=== PATIENT | female | born 1990 | race American Indian/Alaskan Native ===

== ENCOUNTER 2021-02-08 02:33 | Emergency (ER) | payer SELFPAY ==
--- NOTE | 2021-02-08 06:00 | Emergency Department Report ---
- General Chief Complaint: Upper Respiratory Infection Stated Complaint: COLD SX Source: patient Mode of arrival: Ambulatory Limitations: No Limitations - History of Present Illness Initial Comments: Patient is a 30-year-old -[place] female with no past medical history presents to the ED with complaint of acute onset persistent nasal and sinus congestion, frontal sinus pressure, mild dry cough for the last 7 days. Patient states that all her family members including the children have had similar symptoms of the same time. Patient denies dizziness, syncope, fever, chills, nausea, vomiting, abdominal pain, chest pain, diarrhea, sore throat, neck pain or change in vision. MD Complaint: cough, rhinorrhea, nasal congestion, sinus pain -: Sudden, week(s) (1) Severity: moderate Severity scale (0 -10): 4 Quality: sharp, aching Consistency: constant Improves With: nothing Worsens With: nothing Context: sick contacts Associated Symptoms: denies other symptoms, headache, rhinorrhea, nasal congestion, cough. denies: fever, chills, diaphoresis, sore throat, stiff neck, chest pain, shortness of breath, abdominal pain, nausea Treatments Prior to Arrival: "cold medicine" - Related Data Previous Rx's Medication Instructions Recorded Last Taken Type Amoxicillin [Trimox CAP] 500 mg PO Q8H #30 capsule 02/08/21 Unknown Rx Brompheniramine/Pseudoephed/Dm 5 ml PO Q6H PRN #118 ml 02/08/21 Unknown Rx [Bromfed Dm Cough Syrup] Ibuprofen [Motrin] 800 mg PO Q8HR PRN #20 tablet 02/08/21 Unknown Rx Allergies Allergy/AdvReac Type Severity Reaction Status Date / Time No Known Allergies Allergy Unverified 02/08/21 02:42 ED Review of Systems ROS: Stated complaint: COLD SX Other details as noted in HPI Constitutional: denies: chills, fever Eyes: denies: eye pain, eye discharge, vision change ENT: congestion, other (Frontal and maxillary sinus pressure). denies: ear pain, throat pain Respiratory: cough. denies: shortness of breath, wheezing Cardiovascular: denies: chest pain, palpitations Endocrine: no symptoms reported Gastrointestinal: denies: abdominal pain, nausea, diarrhea Genitourinary: denies: urgency, dysuria, discharge Musculoskeletal: denies: back pain, joint swelling, arthralgia Skin: denies: rash, lesions Neurological: headache. denies: weakness, paresthesias Psychiatric: denies: anxiety, depression Hematological/Lymphatic: denies: easy bleeding, easy bruising ED Past Medical Hx - Past Medical History Previous Medical History?: No - Surgical History Past Surgical History?: No - Social History Smoking Status: Never Smoker Substance Use Type: None - Medications Home Medications: Home Medications Medication Instructions Recorded Confirmed Last Taken Type Amoxicillin [Trimox CAP] 500 mg PO Q8H #30 capsule 02/08/21 Unknown Rx Brompheniramine/Pseudoephed/Dm 5 ml PO Q6H PRN #118 ml 02/08/21 Unknown Rx [Bromfed Dm Cough Syrup] Ibuprofen [Motrin] 800 mg PO Q8HR PRN #20 tablet 02/08/21 Unknown Rx ED Physical Exam - General Limitations: No Limitations General appearance: alert, in no apparent distress - Head Head exam: Present: atraumatic, normocephalic, normal inspection - Eye Eye exam: Present: normal appearance, PERRL, EOMI Pupils: Present: normal accommodation - ENT ENT exam: Present: mucous membranes moist, TM's normal bilaterally, normal external ear exam, other (Grossly congested nasal passages; palpable frontal and maxillary sinus tenderness) - Neck Neck exam: Present: normal inspection, full ROM. Absent: tenderness - Respiratory Respiratory exam: Present: normal lung sounds bilaterally. Absent: respiratory distress, wheezes, rales, rhonchi, chest wall tenderness, accessory muscle use, decreased breath sounds - Cardiovascular Cardiovascular Exam: Present: regular rate, normal rhythm, normal heart sounds. Absent: systolic murmur, diastolic murmur, rubs, gallop - GI/Abdominal GI/Abdominal exam: Present: soft, normal bowel sounds. Absent: tenderness, guarding, rebound, hyperactive bowel sounds - Extremities Exam Extremities exam: Present: normal inspection, full ROM, normal capillary refill - Back Exam Back exam: Present: normal inspection, full ROM. Absent: tenderness, CVA tenderness (R), CVA tenderness (L), muscle spasm, paraspinal tenderness, vertebral tenderness - Neurological Exam Neurological exam: Present: alert, oriented X3, CN II-XII intact, normal gait, reflexes normal - Psychiatric Psychiatric exam: Present: normal affect, normal mood - Skin Skin exam: Present: warm, dry, intact, normal color. Absent: rash ED Course Vital Signs 02/08/21 02:46 Temperature 98.7 F Pulse Rate 79 Respiratory 20 Rate Blood Pressure 121/68 O2 Sat by Pulse 95 Oximetry ED Medical Decision Making - Medical Decision Making This is a 30-year-old -[place] female with no past medical history presents to the ED with complaint of acute onset persistent nasal and sinus congestion, frontal sinus pressure, mild dry cough for the last 7 days. Patient states that all her family members including the children have had similar symptoms of the same time. In the ED, patient is alert and oriented x3 and is not in any distress. Patient is hemodynamically stable. Patient symptoms are likely due to acute upper respiratory infection versus sinusitis versus mild bronchitis. Patient was discharged home on medications and advised to follow-up with her primary physician in 7 to 10 days for reevaluation. Patient advised return to the ED immediately if symptoms get worse. - Differential Diagnosis URI; sinusitis; bronchitis; viral syndrome Critical care attestation.: If time is entered above; I have spent that time in minutes in the direct care of this critically ill patient, excluding procedure time. ED Disposition Clinical Impression: Acute upper respiratory infection Acute frontal sinusitis, unspecified Qualifiers: Recurrence: non-recurrent Qualified Code(s): J01.10 - Acute frontal sinusitis, unspecified Disposition: DC-01 TO HOME OR SELFCARE Is pt being admited?: No Does the pt Need Aspirin: No Condition: Stable Instructions: Sinusitis, Adult, [id number], Upper Respiratory Infection, Adult, [id number] Additional Instructions: Take medication with food, drink plenty of fluids and follow-up with your primary care physician in 5 to 7 days for reevaluation. Return to the ED immediately if symptoms get worse Prescriptions: Brompheniramine/Pseudoephed/Dm [Bromfed Dm Cough Syrup] 5 ml PO Q6H PRN #118 ml PRN Reason: Cough Ibuprofen [Motrin] 800 mg PO Q8HR PRN #20 tablet PRN Reason: Pain , Severe (7-10) Amoxicillin [Trimox CAP] 500 mg PO Q8H #30 capsule Referrals: [facility] [Provider Group] - 3-5 Days Time of Disposition: 06:00 Print Language: MAORI
== END 2021-02-08 07:15 | disposition home or self-care (01) ==
LOC: ED 02:33
CPT/HCPCS: 99282

== ENCOUNTER 2022-03-06 20:18 | Emergency (ER) | payer MEDICAID ==
--- NOTE | 2022-03-07 01:26 | Emergency Department Report ---
ED Animal Bite HPI - General Chief Complaint: Animal Bite Stated Complaint: ANIMAL BITE Time Seen by Provider: 03/07/22 01:25 Source: patient, EMS Mode of arrival: Stretcher Limitations: No Limitations - History of Present Illness Initial Comments: Patient is a 31-year-old female presents to the emergency department with complaint of animal bite. Patient was bitten by a dog. She has bites to the left arm and to the right calf. She is unsure of her tetanus status. The dog has not been vaccinated against rabies but she states that the dog is in custody of animal control. - Related Data Previous Rx's Medication Instructions Recorded Last Taken Type Amoxicillin [Trimox CAP] 500 mg PO Q8H #30 capsule 02/08/21 Unknown Rx Brompheniramine/Pseudoephed/Dm 5 ml PO Q6H PRN #118 ml 02/08/21 Unknown Rx [Bromfed Dm Cough Syrup] Ibuprofen [Motrin] 800 mg PO Q8HR PRN #20 tablet 02/08/21 Unknown Rx Amoxicillin/K Clav Tab [Augmentin 1 tab PO Q12HR 7 Days #14 tab 03/07/22 Unknown Rx 875 mg] HYDROcodone/APAP 5-325 [[place] 1 each PO Q6HR PRN 2 Days #8 tablet 03/07/22 Unknown Rx 5/325] Allergies Allergy/AdvReac Type Severity Reaction Status Date / Time No Known Allergies Allergy Unverified 02/08/21 02:42 ED Review of Systems ROS: Stated complaint: ANIMAL BITE Other details as noted in HPI Constitutional: denies: chills, fever Eyes: denies: eye pain, eye discharge, vision change ENT: denies: ear pain, throat pain Respiratory: denies: cough, shortness of breath, wheezing Cardiovascular: denies: chest pain, palpitations Endocrine: no symptoms reported Gastrointestinal: denies: abdominal pain, nausea, diarrhea Genitourinary: denies: urgency, dysuria, discharge Musculoskeletal: denies: back pain, joint swelling, arthralgia Skin: lesions. denies: rash Neurological: denies: headache, weakness, paresthesias Psychiatric: denies: anxiety, depression Hematological/Lymphatic: denies: easy bleeding, easy bruising ED Past Medical Hx - Social History Smoking Status: Never Smoker Substance Use Type: None - Medications Home Medications: Home Medications Medication Instructions Recorded Confirmed Last Taken Type Amoxicillin [Trimox CAP] 500 mg PO Q8H #30 capsule 02/08/21 Unknown Rx Brompheniramine/Pseudoephed/Dm 5 ml PO Q6H PRN #118 ml 02/08/21 Unknown Rx [Bromfed Dm Cough Syrup] Ibuprofen [Motrin] 800 mg PO Q8HR PRN #20 tablet 02/08/21 Unknown Rx Amoxicillin/K Clav Tab [Augmentin 1 tab PO Q12HR 7 Days #14 tab 03/07/22 Unknown Rx 875 mg] HYDROcodone/APAP 5-325 [[place] 1 each PO Q6HR PRN 2 Days #8 tablet 03/07/22 Unknown Rx 5/325] ED Physical Exam - General Limitations: No Limitations General appearance: alert, in no apparent distress - Head Head exam: Present: atraumatic, normocephalic - Eye Eye exam: Present: normal appearance - ENT ENT exam: Present: mucous membranes moist - Neck Neck exam: Present: normal inspection - Respiratory Respiratory exam: Present: normal lung sounds bilaterally. Absent: respiratory distress - Cardiovascular Cardiovascular Exam: Present: regular rate, normal rhythm. Absent: systolic murmur, diastolic murmur, rubs, gallop - GI/Abdominal GI/Abdominal exam: Present: soft, normal bowel sounds - Extremities Exam Extremities exam: Present: normal inspection - Back Exam Back exam: Present: normal inspection - Neurological Exam Neurological exam: Present: alert, oriented X3 - Psychiatric Psychiatric exam: Present: normal affect, normal mood - Skin Skin exam: Present: warm, dry, intact, normal color, other (Small lacerations noted to the right tibial plateau area. There are avulsion lacerations to the left forearm.). Absent: rash ED Course Vital Signs 03/06/22 21:23 Temperature 98.2 F Pulse Rate 102 H Respiratory 16 Rate Blood Pressure 123/74 [Right] O2 Sat by Pulse 99 Oximetry - Reevaluation(s) Reevaluation #1: 03/07/22 04:15 Patient's lacerations have been irrigated by nursing staff. They do not appear to require any sutures. Given this plan to discharge patient. Animal control has a dog and the dog will quarantine. Given this they will let the patient know if she needs to start the rabies prophylaxis in the next 10 days. Critical care attestation.: If time is entered above; I have spent that time in minutes in the direct care of this critically ill patient, excluding procedure time. ED Disposition Clinical Impression: Dog bite, Forearm laceration Disposition: HOME / SELF CARE / HOMELESS Is pt being admited?: No Does the pt Need Aspirin: No Condition: Stable Instructions: Animal Bite, Adult, [id number], Laceration Care, Adult Prescriptions: Amoxicillin/K Clav Tab [Augmentin 875 mg] 1 tab PO Q12HR 7 Days #14 tab HYDROcodone/APAP 5-325 [[place] 5/325] 1 each PO Q6HR PRN 2 Days #8 tablet PRN Reason: Pain Referrals: PRIMARY CARE,MD [Primary Care Provider] - 3-5 Days Medical Decision Making - Radiology Data Radiology results: report reviewed, image reviewed - [facility] Patient is a 31-year-old female unsure of her Tetanus vaccination status who presents after a dog bite. Plan to obtain x-rays to evaluate for fracture, give pain control, irrigate wounds. Patient states that the dog is being held by animal control. Given this even though the is does not have the rabies vaccination patient should be able to hold off on the series.
[2022-03-07] MEDS ORDERED: MORPHINE 4 MG/1 ML INJ IV ONE ×2 (01:43→04:21)
[2022-03-07] MEDS ORDERED: SODIUM CHLORIDE 0.9% IRR 500 ML BOTTLE IR ONE (01:48)
--- NOTE | 2022-03-07 02:31 | XRay Report ---
LEFT FOREARM 2 VIEW(S) INDICATION / CLINICAL INFORMATION: dog bite COMPARISON: None available. FINDINGS: No fracture, dislocation, or significant soft tissue abnormality is demonstrated. No radiopaque forei gn bodies are identified. IMPRESSION: 1. No acute findings. No significant abnormality. Signer Name: Peter Matute II, MD Signed: 03/07/2022 2:27 AM Workstation Name: [id number]
--- NOTE | 2022-03-07 02:31 | XRay Report ---
RIGHT TIBIA-FIBULA 2 VIEW(S) INDICATION / CLINICAL INFORMATION: dog bite COMPARISON: None available. FINDINGS: No fracture, dislocation, or significant soft tissue abnormality is demonstrated. No radiopaque forei gn bodies are identified. IMPRESSION: 1. No acute pathology. Signer Name: Peter Matute II, MD Signed: 03/07/2022 2:27 AM Workstation Name: [id number]
[2022-03-07] MEDS ORDERED: MORPHINE 4 MG/1 ML INJ ONE (03:50)
[2022-03-07] MEDS ORDERED: TETANUS,DIPH,PERTUSS(ACELL) VACCINE 0.5 ML SYRINGE IM ONE (04:15)
[2022-03-07 05:59] VITALS: BP 124/83
== END 2022-03-07 05:59 | disposition home or self-care (01) ==
LOC: ED 20:18
DX: S51.812A Laceration without foreign body of left forearm, initial encounter (principal); W64.XXXA Exposure to other animate mechanical forces, initial encounter; Y93.89 Activity, other specified; Y92.89 Other specified places as the place of occurrence of the external cause; Y99.8 Other external cause status
CPT/HCPCS: 73090; 73590; 90471; 90715; 96374; 99284; J2270